=== PATIENT | male | born 1970 | race Caucasian/White ===

== ENCOUNTER 2018-01-29 09:27 | Emergency (ER) | payer OTHER ==
[2018-01-29] MEDS ORDERED: KETOROLAC 15 MG/ML VIAL IVP ONE ×2 (09:35→10:50)
[2018-01-29] MEDS ORDERED: ONDANSETRON 4 MG/2 ML VIAL IVP ONE (09:35)
[2018-01-29 10:04] LABS: PLATELET COUNT, AUTOMATED 282 K/uL (150-450)
--- NOTE | 2018-01-29 10:49 | RADIOLOGY IMAGING REPORT ---
FACILITY: [facility] - [place] PATIENT NAME: Albin Hutton : 1970 MR: [id number] V: [id number] EXAM DATE: ORDERING PHYSICIAN: DHARMESH CRUZ TECHNOLOGIST: Location: [facility] Patient: Albin Hutton : 1970 Visit/Account:[id number] Date of Sevice: 01/29/2018 EXAMINATION: CT abdomen without IV contrast CT pelvis without IV contrast HISTORY: Right flank pain. TECHNIQUE: Spiral scan was through the abdomen and pelvis without intravenous contrast. Sagittal a nd coronal reformatted images are also submitted. One of the following dose optimization techniques was utilized in the performance of this exam: Autom ated exposure control; adjustment of the mA and/or kV according to the patient's size; or use of an i terative reconstruction technique. Specific details can be referenced in the facility's radiology C T exam operational policy. COMPARISON: None available. FINDINGS: Lower chest: Calcified right hilar lymph nodes consistent with old granulomatous disease. Please note that without intravenous contrast, sensitivity to detection of parenchymal disease is kendrick ited. Liver / biliary: Hepatic steatosis. Otherwise negative. Pancreas: Negative. Spleen: Calcified granulomas. Otherwise negative. Adrenal glands: Negative. Kidneys: 4 to 5 mm stone in the distal right ureter just above the ureterovesical junction with mild to moderate right hydronephrosis and perinephric edema. Pelvic structures: Negative. Bowel: Normal appendix. Diverticulosis of the ascending colon with no evidence of acute diverticuliti s. Otherwise negative. Peritoneum / retroperitoneum / mesenteries: Negative. Vessels: Negative. Lymph nodes: Negative. Musculoskeletal / Body wall: Negative. IMPRESSION: 1. 4 to 5 mm stone in the distal right ureter just above the ureterovesical junction with mild to mod erate right hydronephrosis and perinephric edema. 2. Hepatic steatosis. 3. Diverticulosis of the ascending colon with no evidence of acute diverticulitis. 4. Calcified right hilar lymph nodes and calcified granulomas in the spleen consistent with old granu lomatous disease. Report Dictated By: Simon Xiao MD at 01/29/2018 10:34 AM Report E-Signed By: Simon Xiao MD at 01/29/2018 10:44 AM WSN:[id number]
[2018-01-29] MEDS ORDERED: NAPR375T44 PO (11:02)
[2018-01-29] MEDS ORDERED: TAMS0.4C25 PO (11:02)
[2018-01-29] MEDS ORDERED: ONDA4TAB97 PO (11:02)
--- NOTE | 2018-01-29 11:03 | ER Report ---
History and Physical Time Seen By MD: 09:30 Hx. of Stated Complaint: patient reports right sided flank pain, he believes he has a kidney stone HPI/ROS CHIEF COMPLAINT: Right groin and flank pain. HISTORY OF PRESENT ILLNESS: Patient is a 47-year-old male with known history of right-sided kidney stone that is proximal be 5 mm. Patient presents to emergency department today waking up this morning with severe left-sided flank pain radiating to the groin associated with nausea and vomiting. Patient states he has a prior history of hypertension, type II diabetes and hypercholesterolemia. The severity of the pain is currently 9 out of 10 in intensity. There is associated nausea. Patient denies any gross hematuria or dysuria. Currently denies having any fevers or chills. REVIEW OF SYSTEMS: Respiratory: No cough, no dyspnea. Cardiovascular: No chest pain, no palpitations. Gastrointestinal: Nausea Musculoskeletal: Right flank pain Allergies: Coded Allergies: Sulfa (Sulfonamide Antibiotics) (Verified Allergy, Unknown, 01/29/18) Home Meds Active Scripts Hydrocodone Bit/Acetaminophen (HYDROCODON-ACETAMINOPHEN 5-325) 1 Each Tablet, 1 EACH PO Q4-6H PRN for PAIN, #20 TAB 0 Refills TAKE ONE TABLET BY MOUTH EVERY 4-6 HOURS NEEDED FOR PAIN Prov:DHARMESH CRUZ MD 01/29/18 Naproxen (NAPROXEN) 375 Mg Tablet, 375 MG PO TID for PAIN, #30 TAB 0 Refills Prov:DHARMESH CRUZ MD 01/29/18 Tamsulosin Hcl (FLOMAX) 0.4 Mg Cap.er.24h, 0.4 MG PO QHS, #5 CAP 0 Refills Prov:DHARMESH CRUZ MD 01/29/18 Ondansetron Hcl (ZOFRAN) 4 Mg Tablet, 4 MG PO Q8H for Nausea, #15 TAB 0 Refills Prov:DHARMESH CRUZ MD 01/29/18 Past Medical/Surgical History Hypertension, hypercholesterol, type II diabetes Constitutional Vital Sign - Last 24 Hours 01/29/18 01/29/18 01/29/18 01/29/18 09:35 09:36 09:57 10:00 Temp 97.5 Pulse 68 75 Resp 20 B/P (MAP) 149/83 149/83 (105) 118/75 (89) Pulse Ox 94 88 O2 Delivery Room Air 01/29/18 01/29/18 01/29/18 01/29/18 10:30 10:35 11:05 11:10 Pulse 66 68 79 B/P (MAP) 130/71 (90) Pulse Ox 88 92 85 01/29/18 11:13 B/P (MAP) 129/82 (98) Physical Exam General Appearance: The patient is alert, has no immediate need for airway protection and no current signs of toxicity. Eyes: Pupils equal and round no injection. Respiratory: Chest is non tender, lungs are clear to auscultation. Cardiac: regular rate and rhythm Gastrointestinal: Abdomen is soft and non tender, no masses, bowel sounds normal. Musculoskeletal: Neck: Neck is supple and non tender. Extremities have full range of motion and are non tender. Skin: No rashes or lesions. Medical Decision Making Data Points Result Diagram: 01/29/1845 01/29/18 0945 Laboratory Hematology Test 01/29/18 09:20 01/29/18 09:45 Urine Color Yellow Urine Clarity Clear Urine pH 5.0 pH (4.8-9.5) Urine Specific [place] 1.016 Urine Protein Negative mg/dL (NEGATIVE) Urine Glucose (UA) 50 mg/dL (NEGATIVE) Urine Ketones Negative mg/dL (NEGATIVE) Urine Blood Moderate (NEGATIVE) Urine Nitrite Negative (NEGATIVE) Urine Bilirubin Negative (NEGATIVE) Urine Urobilinogen Negative mg/dL (0.2-1.9) Urine Leukocyte Esterase Negative (NEGATIVE) Urine RBC 1 /HPF (0-2/HPF) Urine WBC <1 /HPF (0-5/HPF) Urine Squamous Epithelial Cells Few /LPF (</=FEW) Urine Bacteria Negative /HPF (NONE-FEW) Urine Mucus None /HPF (NONE-FEW) Red Blood Count 5.14 M/uL (4.00-5.60) Mean Corpuscular Volume 81.6 fL (80.0-96.0) Mean Corpuscular Hemoglobin 27.9 pg (26.0-33.0) Mean Corpuscular Hemoglobin Concent 34.2 g/dL (32.0-36.0) Red Cell Distribution Width 14.7 % (11.5-14.5) Mean Platelet Volume 7.5 fL (7.2-11.1) Neutrophils (%) (Auto) 63.7 % (39.4-72.5) Lymphocytes (%) (Auto) 23.3 % (17.6-49.6) Monocytes (%) (Auto) 11.1 % (4.1-12.4) Eosinophils (%) (Auto) 1.2 % (0.4-6.7) Basophils (%) (Auto) 0.7 % (0.3-1.4) Nucleated RBC Relative Count (auto) 0.0 /100WBC Neutrophils # (Auto) 4.9 K/uL (2.0-7.4) Lymphocytes # (Auto) 1.8 K/uL (1.3-3.6) Monocytes # (Auto) 0.9 K/uL (0.3-1.0) Eosinophils # (Auto) 0.1 K/uL (0.0-0.5) Basophils # (Auto) 0.1 K/uL (0.0-0.1) Nucleated RBC Absolute Count (auto) 0.00 K/uL Peripheral Blood Smear No Y/N Sodium Level 137 mmol/L (137-145) Potassium Level 4.0 mmol/L (3.5-5.0) Chloride Level 103 mmol/L (98-107) Carbon Dioxide Level 22 mmol/L (22-30) Blood Urea Nitrogen 18 mg/dl (9-21) Creatinine 1.20 mg/dl (0.66-1.25) Glomerular Filtration Rate Calc > 60.0 Random Glucose 189 mg/dl (75-110) Calcium Level 9.4 mg/dl (8.4-10.2) Chemistry Test 01/29/18 09:20 01/29/18 09:45 Urine Color Yellow Urine Clarity Clear Urine pH 5.0 pH (4.8-9.5) Urine Specific [place] 1.016 Urine Protein Negative mg/dL (NEGATIVE) Urine Glucose (UA) 50 mg/dL (NEGATIVE) Urine Ketones Negative mg/dL (NEGATIVE) Urine Blood Moderate (NEGATIVE) Urine Nitrite Negative (NEGATIVE) Urine Bilirubin Negative (NEGATIVE) Urine Urobilinogen Negative mg/dL (0.2-1.9) Urine Leukocyte Esterase Negative (NEGATIVE) Urine RBC 1 /HPF (0-2/HPF) Urine WBC <1 /HPF (0-5/HPF) Urine Squamous Epithelial Cells Few /LPF (</=FEW) Urine Bacteria Negative /HPF (NONE-FEW) Urine Mucus None /HPF (NONE-FEW) White Blood Count 7.7 k/uL (4.5-11.0) Red Blood Count 5.14 M/uL (4.00-5.60) Hemoglobin 14.3 g/dL (14.0-18.0) Hematocrit 41.9 % (42.0-52.0) Mean Corpuscular Volume 81.6 fL (80.0-96.0) Mean Corpuscular Hemoglobin 27.9 pg (26.0-33.0) Mean Corpuscular Hemoglobin Concent 34.2 g/dL (32.0-36.0) Red Cell Distribution Width 14.7 % (11.5-14.5) Platelet Count 282 K/uL (150-450) Mean Platelet Volume 7.5 fL (7.2-11.1) Neutrophils (%) (Auto) 63.7 % (39.4-72.5) Lymphocytes (%) (Auto) 23.3 % (17.6-49.6) Monocytes (%) (Auto) 11.1 % (4.1-12.4) Eosinophils (%) (Auto) 1.2 % (0.4-6.7) Basophils (%) (Auto) 0.7 % (0.3-1.4) Nucleated RBC Relative Count (auto) 0.0 /100WBC Neutrophils # (Auto) 4.9 K/uL (2.0-7.4) Lymphocytes # (Auto) 1.8 K/uL (1.3-3.6) Monocytes # (Auto) 0.9 K/uL (0.3-1.0) Eosinophils # (Auto) 0.1 K/uL (0.0-0.5) Basophils # (Auto) 0.1 K/uL (0.0-0.1) Nucleated RBC Absolute Count (auto) 0.00 K/uL Peripheral Blood Smear No Y/N Glomerular Filtration Rate Calc > 60.0 Calcium Level 9.4 mg/dl (8.4-10.2) Urinalysis Test 01/29/18 09:20 Urine Color Yellow Urine Clarity Clear Urine pH 5.0 pH (4.8-9.5) Urine Specific [place] 1.016 Urine Protein Negative mg/dL (NEGATIVE) Urine Glucose (UA) 50 mg/dL (NEGATIVE) Urine Ketones Negative mg/dL (NEGATIVE) Urine Blood Moderate (NEGATIVE) Urine Nitrite Negative (NEGATIVE) Urine Bilirubin Negative (NEGATIVE) Urine Urobilinogen Negative mg/dL (0.2-1.9) Urine Leukocyte Esterase Negative (NEGATIVE) Urine RBC 1 /HPF (0-2/HPF) Urine WBC <1 /HPF (0-5/HPF) Urine Squamous Epithelial Cells Few /LPF (</=FEW) Urine Bacteria Negative /HPF (NONE-FEW) Urine Mucus None /HPF (NONE-FEW) EKG/Imaging Imaging FACILITY: [facility] [place] PATIENT NAME: Albin Hutton : 1970 MR: [id number] V: [id number] EXAM DATE: [id number] ORDERING PHYSICIAN: DHARMESH CRUZ TECHNOLOGIST: Location: [facility] [place] Patient: Albin Hutton : 1970 Visit/Account:[id number] Date of Sevice: 01/29/2018 EXAMINATION: CT abdomen without IV contrast CT pelvis without IV contrast HISTORY: Right flank pain. TECHNIQUE: Spiral scan was through the abdomen and pelvis without intravenous contrast. Sagittal and coronal reformatted images are also submitted. One of the following dose optimization techniques was utilized in the performance of this exam: Automated exposure control; adjustment of the mA and/or kV according to the patient's size; or use of an iterative reconstruction technique. Specific details can be referenced in the facility's radiology CT exam operational policy. COMPARISON: None available. FINDINGS: Lower chest: Calcified right hilar lymph nodes consistent with old granulomatous disease. Please note that without intravenous contrast, sensitivity to detection of parenchymal disease is limited. Liver / biliary: Hepatic steatosis. Otherwise negative. Pancreas: Negative. Spleen: Calcified granulomas. Otherwise negative. Adrenal glands: Negative. Kidneys: 4 to 5 mm stone in the distal right ureter just above the ureterovesical junction with mild to moderate right hydronephrosis and perinephric edema. Pelvic structures: Negative. Bowel: Normal appendix. Diverticulosis of the ascending colon with no evidence of acute diverticulitis. Otherwise negative. Peritoneum / retroperitoneum / mesenteries: Negative. Vessels: Negative. Lymph nodes: Negative. Musculoskeletal / Body wall: Negative. IMPRESSION: 1. 4 to 5 mm stone in the distal right ureter just above the ureterovesical junction with mild to moderate right hydronephrosis and perinephric edema. 2. Hepatic steatosis. 3. Diverticulosis of the ascending colon with no evidence of acute diverticulitis. 4. Calcified right hilar lymph nodes and calcified granulomas in the spleen consistent with old granulomatous disease. Report Dictated By: Simon Xiao MD at 01/29/2018 10:34 AM Report E-Signed By: Simon Xiao MD at 01/29/2018 10:44 AM WSN:[id number] Course/Re-evaluation ED Course A bedside ultrasound demonstrates right-sided hydronephrosis. Plan at this time will be workup for renal colic and kidney stone. We'll obtain urinalysis, CBC, BMP. We will give IV Toradol for pain and Zofran for nausea and perform noncontrast CT of the abdomen and pelvis. Decision to Disposition Date: Jan 29, 2018 Decision to Disposition Time: 11:15 Depart Departure Latest Vital Signs Vital Signs Date Time Temp Pulse Resp B/P (MAP) Pulse Ox O2 Delivery O2 Flow Rate FiO2 01/29/18 11:13 129/82 (98) 01/29/18 11:10 79 85 01/29/18 09:35 97.5 20 Room Air Impression: Primary Impression: Kidney stone on right side Condition: Improved Disposition: HOME OR SELF-CARE New Scripts Hydrocodone Bit/Acetaminophen (HYDROCODON-ACETAMINOPHEN 5-325) 1 Each Tablet 1 EACH PO Q4-6H PRN for PAIN, #20 TAB 0 Refills TAKE ONE TABLET BY MOUTH EVERY 4-6 HOURS NEEDED FOR PAIN Prov: DHARMESH CRUZ MD 01/29/18 Naproxen (NAPROXEN) 375 Mg Tablet 375 MG PO TID for PAIN, #30 TAB 0 Refills Prov: DHARMESH CRUZ MD 01/29/18 Tamsulosin Hcl (FLOMAX) 0.4 Mg Cap.er.24h 0.4 MG PO QHS, #5 CAP 0 Refills Prov: DHARMESH CRUZ MD 01/29/18 Ondansetron Hcl (ZOFRAN) 4 Mg Tablet 4 MG PO Q8H for Nausea, #15 TAB 0 Refills Prov: DHARMESH CRUZ MD 01/29/18 Patient Instructions: Kidney Stones (DC) Additional Instructions: Return to the emergency department in 72 hours if symptoms persist. If your pain is not controlled or you develop fever and any time you should return to the emergency department immediately. DHARMESH CRUZ MD Jan 29, 2018 11:03
[2018-01-29] MEDS ORDERED: LOR5/325 PO (11:09)
[2018-01-29 11:13] VITALS: BP 129/82
== END 2018-01-29 11:21 | disposition home or self-care (01) ==
LOC: ER 09:37
DX: N13.2 Hydronephrosis with renal and ureteral calculous obstruction (principal); N23 Unspecified renal colic
CPT/HCPCS: 74176; 81001; 85025; 96374; 96375; 96376; 99284; J1885; J2405; 82310; 82374; 82435; 82565; 82947; 84132; 84295; 84520

== ENCOUNTER → 2018-03-02 | Outpatient (CLI) | payer OTHER ==
[~2018-03-02] MED LIST: LOR5/325 PO; NAPR375T44 PO; ONDA4TAB97 PO; TAMS0.4C25 PO
--- NOTE | 2018-03-02 13:07 | RADIOLOGY IMAGING REPORT ---
FACILITY: [facility] - [place] PATIENT NAME: Albin Hutton : 1970 MR: [id number] V: [id number] EXAM DATE: ORDERING PHYSICIAN: ISAIAH LUDWIG TECHNOLOGIST: Location: [facility] Patient: Albin Hutton : 1970 Visit/Account:[id number] Date of Sevice: 03/02/2018 CT ABDOMEN PELVIS W/O CON HISTORY: Kidney stones since October, bladder and January TECHNIQUE: Axial images acquired through the abdomen/pelvis. Coronal and sagittal reformatting also performed. No IV contrast administered.Dose Lowering Technique One of the following dose optimization techniques was utilized in the performance of this exam: Autom ated exposure control; adjustment of the mA and/or kV according to the patient's size; or use of an i terative reconstruction technique. Specific details can be referenced in the facility's radiology C T exam operational policy. COMPARISON: January 29, 2018 FINDINGS: Visualized lung bases: Negative. Hepatobiliary: There is diffuse hepatic steatosis Spleen: Calcified granulomas Adrenals: Negative. Pancreas: Negative. Kidneys ureters and bladder: Previous seen noted 4 to 5 mm calculus in the distal right ureter remain s unchanged in position just proximal to the right UVJ. There is however no evidence of hydronephros is or hydroureter at this time. No demonstration of nephrolithiasis. Genitalia: Negative. GI: There is mild colonic diverticulosis although no CT evidence of acute diverticulitis. The appen mitchel is visualized and does not appear inflamed Vessels/spaces/nodes: Negative. Bones/soft tissues: Small umbilical hernia containing fat. Small left inguinal hernia containing fa t Additional findings: None pertinent. IMPRESSION: The previously noted 4 to 5 mm calculus in the distal right ureter just proximal to the right UVJ has remained unchanged in position. There is however no evidence of hydronephrosis or hydroureter at th is time Additional chronic findings as described above Report Dictated By: Brooklynn Rich MD at 03/02/2018 12:56 PM Report E-Signed By: Brooklynn Rich MD at 03/02/2018 1:02 PM WSN:[email or web address]
== END ==
LOC: CT 02-03 01:30
PROVIDERS: ATTEND Urology
DX: N20.0 Calculus of kidney (principal); K42.9 Umbilical hernia without obstruction or gangrene; K57.30 Diverticulosis of large intestine without perforation or abscess without bleeding
CPT/HCPCS: 74176

== ENCOUNTER → 2018-03-09 | Outpatient (CLI) | payer OTHER ==
[~2018-03-09] MED LIST changes: +ASPI-1471 PO; +ASPI81TA94 PO; +ATOR40TA24 PO; +CETI-176 PO; +CHOL500045 PO; +CLON-1 PO; +FENO48TA PO; +GLY5 PO; +LISI-374 PO; +METF-452 PO; +MONT10TA PO; +RANI-366 PO; +TRINTELLIX PO
--- NOTE | 2018-03-09 09:43 | EKG ---
FACILITY: [facility] [place] PATIENT NAME: DAVINA KEANE : [id number] MR: [id number] V: [id number] EXAM DATE: ORDERING PHYSICIAN: ISAIAH LUDWIG TECHNOLOGIST: DRAGAN Test Reason : PRE OP Blood Pressure : / mmHG Vent. Rate : 061 BPM Atrial Rate : 061 BPM P-R Int : 170 ms QRS Dur : 078 ms QT Int : 382 ms P-R-T Axes : 043 042 020 degrees QTc Int : 384 ms Normal sinus rhythm with sinus arrhythmia Nonspecific ST and T wave abnormality Abnormal ECG No previous ECGs available Confirmed by SAM SCHWARTZ ([id number]) on 03/09/2018 6:14:44 PM Referred By: VANI Confirmed By:SAM SCHWARTZ
--- NOTE | 2018-03-09 11:07 | RADIOLOGY IMAGING REPORT ---
FACILITY: [facility] PATIENT NAME: Albin Hutton : 1970 MR: [id number] V: [id number] EXAM DATE: ORDERING PHYSICIAN: JAZMYN JIMENEZ TECHNOLOGIST: Location: [facility] Patient: Albin Hutton : 1970 Visit/Account:[id number] Date of Sevice: 03/09/2018 CHEST PA LAT History: Preoperative for kidney stone surgery FINDINGS: Comparison studies: None. Tubes and Lines: None. Lungs and pleura: Well aerated. No evidence of focal consolidation or pleural effusions. Mediastinum: normal. Cardiac silhouette: normal . Osseous structures: Unremarkable for age . IMPRESSION: Normal chest Report Dictated By: Tu Rodrigues MD at 03/09/2018 11:00 AM Report E-Signed By: Tu Rodrigues MD at 03/09/2018 11:01 AM WSN:[id number]
== END ==
LOC: RAD 08:50
PROVIDERS: ATTEND Family Medicine
DX: Z01.818 Encounter for other preprocedural examination (principal); R94.31 Abnormal electrocardiogram [ECG] [EKG]
CPT/HCPCS: 36415; 71046; 82465; 83718; 84443; 84478; 93005

== ENCOUNTER 2018-03-14 02:25 | Observation (INO) | payer OTHER ==
--- NOTE | 2018-03-11 15:12 | HISTORY AND PHYSICAL ---
DATE OF ADMISSION: March 14, 2018 CHIEF COMPLAINT Right kidney stone. HISTORY OF PRESENT ILLNESS Patient is a 47-year-old white male who recently presented with right flank pain and was diagnosed with a 5 mm distal stone on the 29 of January. Patient was originally seen in the Urology Clinic on the 16 of February for a followup. At that time, his urinalysis was normal, and he reported he was not having any significant discomfort. He had not passed any stone or stone fragments at that visit. He was given a urine strainer, and he returned to the clinic on the for a followup. A followup CT showed no significant movement of his distal kidney stone. In fact, he has had no progression over one month's time. He is now being brought to the operating room for planned right extracorporeal shock wave lithotripsy and/or ureteroscopy plus/minus a stent placement for this right distal stone. PAST MEDICAL HISTORY 1. Hypercholesterolemia. 2. Hypertension. 3. Obstructive sleep apnea. 4. Gastroesophageal reflux disease. 5. Non-insulin dependent diabetes. 6. Depression and anxiety. 7. Hypogonadism. PAST SURGICAL HISTORY 1. Tonsillectomy. 2. Corneal laceration. 3. Colonoscopy. 4. Hernia repair. 5. Lateral internal sphincterotomy. 6. Excision of basal cell carcinoma of the left ear. ALLERGIES SULFA. CURRENT MEDICATIONS 1. Lisinopril. 2. Metformin. 3. Glyburide. 4. Omeprazole. 5. Zantac. 6. Zyrtec. 7. Aspirin. 8. Singulair. 9. Lipitor. 10. Klonopin. 11. Trintellix. 12. Fenofibrate. 13. Vitamin D. 14. AndroGel. FAMILY HISTORY Noncontributory. SOCIAL HISTORY Patient lives in [place], [place], and is single. He denies tobacco or ethanol use. REVIEW OF SYSTEMS Patient denies chest pain, shortness of breath, nausea, vomiting, fever, chills, productive cough, chronic headaches, liver disease, or bleeding disorder. PHYSICAL EXAMINATION GENERAL: Patient is a well-developed, well-nourished, white male in no acute distress. HEENT: Normocephalic, atraumatic. CHEST: Clear to auscultation bilaterally. CARDIOVASCULAR: Regular rate and rhythm. ABDOMINAL: Soft, nontender. No masses are palpated. GENITOURINARY: Deferred to the OR. EXTREMITIES: Without clubbing, cyanosis, or edema. NEUROLOGIC: Nonfocal. IMPRESSION A 47-year-old white male with right distal ureteral calculus. PLAN Will perform anesthetic cystoscopy, possible stent placement, ureteroscopy, and/or extracorporeal shock wave lithotripsy as indicated. MTDD
[2018-03-11 18:38] LABS: PLATELET COUNT, AUTOMATED 320 K/uL (150-450)
[~2018-03-14] VITALS: Ht 186.7 cm; Wt 135.2 kg
[2018-03-14] MEDS ORDERED: MIDAZOLAM 2 MG/2 ML VIAL IVP PRN (06:30)
[2018-03-14] MEDS ORDERED: LIDOCAINE/SOD BICARB 8.4% SYR ID ONE (06:30)
[2018-03-14] MEDS ORDERED: ceFAZolin(*) 2GM/D5W 50ML 50 ML IVPB ONE (06:30)
[2018-03-14] MEDS ORDERED: NORMOSOL R SOLN(*) 1000 ML BAG 1,000 ML IV PRN (06:30)
[2018-03-14] MEDS ORDERED: FAMOTIDINE 20 MG TAB PO ONE (06:40)
[2018-03-14 06:41] VITALS: BP 138/83
[2018-03-14] MEDS ORDERED: DEXAMETHASONE SOD PHOS 10MG/ML ONE ×2 (06:52→06:53)
[2018-03-14] MEDS ORDERED: LIDOCAINE MPF 1% 5 ML VIAL ONE ×2 (06:52→06:53)
[2018-03-14] MEDS ORDERED: PROPOFOL EMUL(*) 10MG/ML 20 ML 20 ML ONE ×2 (06:52→06:53)
[2018-03-14] MEDS ORDERED: ONDANSETRON 4 MG/2 ML VIAL ONE ×2 (06:52→06:53)
[2018-03-14] MEDS ORDERED: KETAMINE HCL-NS 50 MG/5 ML SYR ONE (06:53)
[2018-03-14] MEDS ORDERED: fentaNYL CITR 100 MCG/2 ML AMP ONE (06:53)
[2018-03-14] MEDS ORDERED: IOPAMIDOL-200 50 ML VIAL IS ONE (07:01)
[2018-03-14] MEDS ORDERED: BELLADONNA ALK/OPIUM 60MG SUPP PR ONE (07:01)
[2018-03-14] MEDS ORDERED: LIDOCAINE MPF 4% 200MG/5ML AMP ONE (07:04)
[2018-03-14] MEDS ORDERED: LIDOCAINE 5% OINT 35.44 GM OINT TP ONE (07:25)
[2018-03-14] MEDS ORDERED: ePHEDrine 25 MG/5 ML DISP.SYR IVP ONE (07:51)
[2018-03-14] MEDS ORDERED: KETOROLAC 30 MG/ML VIAL ONE (08:48)
[2018-03-14] MEDS ORDERED: NS(*) 0.9% 1000 ML BAG 1,000 ML IV PRN ×2 (09:05→09:10)
[2018-03-14] MEDS ORDERED: PHENAZOPYRIDINE 200 MG TAB PO PRN (09:05)
[2018-03-14] MEDS ORDERED: MORPHINE 1 MG/ML 30 ML PCA IV PRN (09:10)
[2018-03-14] MEDS ORDERED: MAG HYD/AL HYD/SIMETH 30ML UDC PO PRN (09:10)
[2018-03-14] MEDS ORDERED: NALOXONE HCL 0.4 MG/ML VIAL IVP PRN (09:10)
[2018-03-14] MEDS ORDERED: ZOLPIDEM TARTRATE 5 MG TAB PO PRN (09:10)
[2018-03-14] MEDS ORDERED: OXYBUTYNIN CHL XL 5 MG TABCR PO PRN (09:15)
[2018-03-14] MEDS ORDERED: ONDANSETRON 4 MG/2 ML VIAL IVP PRN (09:15)
[2018-03-14] MEDS ORDERED: PCA LOCKBOX KEYS XX PRN (09:15)
[2018-03-14 09:40] VITALS: BP 141/89
--- NOTE | 2018-03-14 10:00 | RADIOLOGY IMAGING REPORT ---
FACILITY: [facility] [place] PATIENT NAME: Albin Hutton : 1970 MR: [id number] V: [id number] EXAM DATE: ORDERING PHYSICIAN: ISAIAH LUDWIG TECHNOLOGIST: Location: [facility] Patient: Albin Hutton : 1970 Visit/Account:[id number] Date of Sevice: 03/14/2018 Exam: RETROGRADE PYELOGRAM Indication: INTRA-OP STENT PLACEMENT, Comparison: CT 03/07/2018 Findings: Fluoroscopy is provided for right-sided ureteroscopy and stent placement. Fluoroscopy time one minute nine seconds DOSE: Air kerma was 115.63 mGy. IMPRESSION: Procedural fluoroscopy Report Dictated By: Jer Hackett at 03/14/2018 9:53 AM Report E-Signed By: Jer Hackett at 03/14/2018 9:54 AM WSN:[id number]
--- NOTE | 2018-03-14 10:24 | RADIOLOGY IMAGING REPORT ---
FACILITY: [facility] - [place] PATIENT NAME: Albin Hutton : 1970 MR: [id number] V: [id number] EXAM DATE: ORDERING PHYSICIAN: ISAIAH LUDWIG TECHNOLOGIST: [place] [facility] [place]: Albin Hutton : 1970 Visit/Account:[id number] Date of Sevice: 03/07/2018 ABDOMEN PELVIS ESWL CYSTO W/O HISTORY: KIDNEY STONES TECHNIQUE: Axial images acquired through the abdomen/pelvis. Coronal and sagittal reformatting also performed. No IV contrast administered.Dose Lowering Technique One of the following dose optimization techniques was utilized in the performance of this exam: Autom ated exposure control; adjustment of the mA and/or kV according to the patient's size; or use of an i terative reconstruction technique. Specific details can be referenced in the facility's radiology C T exam operational policy. COMPARISON: March 02, 2018 FINDINGS: Visualized lung bases: Negative. Hepatobiliary: Diffuse hepatic steatosis Spleen: Splenic granulomas Adrenals: Negative. Pancreas: Negative. Kidneys ureters and bladder: Previous noted 4 to 5 mm calculus in the distal right ureter remains unc hanged in position just proximal to the right UVJ. There is no evidence of hydronephrosis or hydrour eter. No evidence of nephrolithiasis. The bladder is mostly decompressed Genitalia: There coarse calcifications within the prostate gland GI: No evidence of bowel obstruction or bowel wall thickening Vessels/spaces/nodes: There mildly prominent mesenteric lymph nodes although appear stable compared the prior study. There are mild infiltrative changes seen in the mesenteric fat. This could be nons pecific finding possibly related to mesenteritis. Bones/soft tissues: Small umbilical hernia containing fat. Small left inguinal hernia containing fa t Additional findings: None pertinent. IMPRESSION: Previously noted 4 to 5 mm calculus in the distal right ureter remains unchanged in position just pro ximal to the right UVJ with no evidence of hydronephrosis or hydroureter Mildly prominent mesenteric lymph nodes although appears stable when compared the prior study. There are mild infiltrative changes in the mesenteric fat. This could be nonspecific in nature or possibl y related to mesenteritis. Clinical correlation needed Diffuse hepatic steatosis Report Dictated By: Brooklynn Rich MD at 03/14/2018 10:12 AM Report E-Signed By: Brooklynn Rich MD at 03/14/2018 10:20 AM WSN:[email or web address]
--- NOTE | 2018-03-14 11:36 | OPERATIVE REPORT 1 ---
EVENT DATE: March 14, 2018 SURGEON: Juan Clement MD ANESTHESIOLOGIST: Ruy Shepard MD ANESTHESIA: General. PREOPERATIVE DIAGNOSIS Right distal ureteral calculus. POSTOPERATIVE DIAGNOSIS Impacted right distal ureteral calculus. PROCEDURES PERFORMED 1. Cystoscopy. 2. Right retrograde pyelograms. 3. Right Double J internal ureteral stent placement. ESTIMATED BLOOD LOSS 5 cc. IV FLUIDS Crystalloids. DRAINS 6-Armenian x 26 cm Contour stent on right. PATHOLOGY None. COMPLICATIONS None. CONDITION The patient was taken to recovery room awake and in stable condition. STATEMENT OF MEDICAL NECESSITY The patient is a 47-year old white male who presented in mid January with right flank pain and was found to have a 5 mm right distal stone with moderate hydronephrosis. He was seen in the Urology Clinic in followup and did not pass the stone. A followup x-ray revealed no change in the stone position. However, the hydronephrosis had resolved. The patient was scheduled for right ureteroscopy at the end of February at that time if his stone had not passed. Followup x-ray preoperatively reveals no change in his stone position and, therefore, he is now being brought to the operating room for planned anesthetic cystoscopy, right retrograde ureteroscopy with stone manipulation and possible stent placement. DESCRIPTION OF OPERATION PERFORMED The patient was brought to the operating room. After general anesthetic was obtained, he was placed in the dorsal lithotomy position and prepped and draped in the usual sterile manner. Anesthetic cystoscopy relayed normal appearing pendulous, bulbar, membranous and prostatic urethra. Upon entering his bladder, he was noted to have smooth bladder mucosa and slit-like ureteral orifices, both effluxing clear urine. He had no bladder tumors or other lesions. At this point, the right ureteral orifice was cannulated with a 6- Armenian open end access catheter. A 0.035 sensor wire was advanced in the lumen of the access catheter past the stone up to the upper pole of calyx, which was confirmed by fluoroscopy. The access catheter was then advanced up to the level of the stone and attempted to be advanced next to stone over the wire up more proximally. There was a moderate amount of resistance encountered but I was able to successfully negotiate the 6-Armenian access catheter past the stone. Following this, the access catheter was removed, leaving the wire in place and this wire was then used to attempt to place the 8/10 dilating sheath system. The 8-Armenian sheath was passed over the wire and under fluoroscopic imaging advanced up the ureter to the level of the stone. Significant resistance was encountered and advancement of the 8-Armenian sheath could only be done to mid ureter. The wire system would continue to buckle within the bladder. Consideration of using a super stiff wire was given at this point and also possibly injecting some dilute contrast and surgical jelly mixture to aid in advancement past the stone. However, with attempted removal of the curled wire and 8-Armenian access catheter in the bladder, the wire in the ureter migrated down distally into the bladder, effectively losing access. The patient was re- cystoscoped. A minor amount of blood was emanating from the right ureteral orifice. At this point, the 6-Armenian access catheter was advanced in working channel of the scope and just inside the ureteral orifice. A retrograde pyelogram with dilute contrast material and lubricating jelly was injected in retrograde manner. Faint filling of the entire ureter and collecting system were identified. There was no evidence of ureteral injury or extravasation noted. At this point, a 0.035 wire was advanced into the lumen of the access catheter and advanced up to the upper pole of calyx. It was decided at this point that we would perform ureteral stenting, leave it in place for approximately 10-14 days for some passive ureteral dilation and then return for definitive stone treatment. Therefore, the access catheter was removed and the wire was used to place a 6-Armenian x 26 cm Contour stent. The stent advanced easily over the wire past the stone and he was noted to have curling in the renal pelvis by fluoroscopy and good curling in the bladder by direct vision. The patient's bladder was drained through the cystoscopic sheath. A B and O suppository was given at the conclusion of the case. He was awakened in the operating room and taken to the recovery area awake and in stable condition. PLAN We will keep the patient for 24 hour observation secondary to his social situation and lack of home care. We will discharge him home in the morning on Flomax, Colace, [place], Pyridium and Ditropan XL. We will have him return to the operating room in 10-14 days for followup ureteroscopy with definitive stone treatment after he has had some passive ureteral dilation from the stent. PAULD
[2018-03-14 14:27] VITALS: BP 129/73
[2018-03-14 14:48] VITALS: BP 141/87
[2018-03-14] MEDS: KETOROLAC 15 MG/ML VIAL IVP SCH ×2 (15:12→21:14)
[2018-03-14] MEDS: glyBURIDE 5 MG TAB PO SCH (17:52)
[2018-03-14] MEDS: metFORMIN HCL 500 MG TAB PO SCH (17:53)
[2018-03-14 18:49] VITALS: BP 119/78
[2018-03-14] MEDS ORDERED: RANITIDINE HCL 150 MG TAB PO SCH (21:00)
[2018-03-14] MEDS: DOCUSATE SODIUM 100 MG CAP PO SCH (21:00)
[2018-03-15 01:25] VITALS: BP 123/75
[2018-03-15] MEDS: KETOROLAC 15 MG/ML VIAL IVP SCH ×2 (03:00→09:00)
[2018-03-15 07:38] VITALS: BP 126/84
[2018-03-15] MEDS ORDERED: LISINOPRIL 20 MG TAB PO SCH (09:00)
[2018-03-15] MEDS ORDERED: FENOFIBRATE 48 MG TAB PO SCH (09:00)
[2018-03-15] MEDS ORDERED: clonazePAM 1 MG TAB PO SCH (09:00)
[2018-03-15] MEDS ORDERED: RANITIDINE HCL 150 MG TAB PO SCH (09:00)
[2018-03-15] MEDS ORDERED: TAMSULOSIN HCL 0.4 MG CAP PO SCH (09:00)
[2018-03-15] MEDS: metFORMIN HCL 500 MG TAB PO SCH (09:00)
[2018-03-15] MEDS: glyBURIDE 5 MG TAB PO SCH (09:00)
[2018-03-15] MEDS: DOCUSATE SODIUM 100 MG CAP PO SCH (09:00)
[2018-03-15 11:50] VITALS: Ht 186.7 cm; Wt 135.2 kg
== END 2018-03-15 08:57 | disposition home or self-care (01) ==
LOC: OR 02:25 → MED 09:40
PROVIDERS: ADMIT Urology; ATTEND Urology
DX: N20.1 Calculus of ureter (principal); E78.00 Pure hypercholesterolemia, unspecified; I10 Essential (primary) hypertension; G47.33 Obstructive sleep apnea (adult) (pediatric); K21.9 Gastro-esophageal reflux disease without esophagitis; E11.9 Type 2 diabetes mellitus without complications; F41.8 Other specified anxiety disorders; E29.1 Testicular hypofunction; Z88.2 Allergy status to sulfonamides; Z79.84 Long term (current) use of oral hypoglycemic drugs
CPT/HCPCS: 36415; 36416; 52332; 74176; 74420; 81001; 82948; 84153; 85025; 87088; 94640; 94660; C1758; C1769; C2617; G0378; J1100; J1885; J2001; J2405; J2704; J3010; J3490; Q9966; 82040; 82247; 82310; 82374; 82435; 82565; 82947; 84075; 84132; 84155; 84295; 84450; 84460; 84520; J0690

== ENCOUNTER 2018-03-28 03:34 | Observation (INO) | payer OTHER ==
[2018-03-25 09:50] LABS: PLATELET COUNT, AUTOMATED 347 K/uL (150-450)
--- NOTE | 2018-03-25 13:56 | HISTORY AND PHYSICAL ---
DATE OF ADMISSION: March 28, 2018 CHIEF COMPLAINT Right kidney stone with indwelling ureteral stent. HISTORY OF PRESENT ILLNESS The patient is a 47-year-old white male who was originally diagnosed with a right distal ureteral stone after presenting to the emergency room on the 29 of January with flank pain. He was followed up in the urology clinic with a CT scan on the 02 March which showed no significant movement of his stones. He was taken to the operating room on March 14, 2018 for attempted right ureteroscopy. However, the stone was densely impacted and he had a ureteral stent placed with a plan to return in approximately 2 weeks time for ureteroscopy after passive ureteral dilation. He is now being admitted for the above procedure. PAST MEDICAL HISTORY * Hypercholesterolemia. * Hypertension. * Obstructive sleep apnea. * Gastroesophageal reflux disease. * Noninsulin dependent diabetes. * Depression with anxiety. * Hypogonadism. PAST SURGICAL HISTORY * Tonsillectomy. * Corneal laceration. * Colonoscopy. * Hernia repair. * Lateral internal sphincterotomy. * Excision of basal cell carcinoma of the left ear. * Cystoscopy with right ureteral stent placement March 14, 2018. ALLERGIES SULFA CURRENT MEDICATIONS * Lisinopril. * Metformin. * Glyburide. * Omeprazole. * Zantac. * Zyrtec. * Aspirin. * Singular. * Lipitor. * Klonopin. * Trintellix. * Fenofibrate. * Vitamin D. * AndroGel. * Flomax. * Colace. * [place]. * Pyridium. * Ditropan XL. SOCIAL HISTORY The patient lives in [place], [place]. He is single. Denies tobacco or ethanol use. FAMILY HISTORY Noncontributory. REVIEW OF SYSTEMS The patient denies chest pain, shortness of breath, nausea, vomiting, fever, chills, productive cough, liver disease or bleeding disorder. PHYSICAL EXAMINATION GENERAL: The patient is a well-developed, well-nourished white male in no acute distress. HEENT: Normocephalic, atraumatic. CHEST: Clear to auscultation bilaterally. CARDIOVASCULAR: Regular rate and rhythm. ABDOMEN: Soft, nontender, no masses are palpated. : Deferred to the operating room. EXTREMITIES: Without clubbing, cyanosis, or edema. NEURO: Nonfocal. IMPRESSION This is a 47-year-old white male with a history of a right 5 mm distal impacted stone, status post a ureteral stent placement 2 weeks ago. PLAN We will perform anesthetic cystoscopy, stent removal, ureteroscopy and stone treatment. [facility]
[~2018-03-28] VITALS: Ht 185.4 cm; Wt 135.4 kg
[2018-03-28] VITALS (16 sets, daily range): BP systolic 105–143; BP diastolic 69–92
[~2018-03-28 03:34] MED LIST changes: +DOCU-416 PO; +IBUP-56 PO; +OXYB10TA16 PO; +OXYB5TAB86 PO; +PHEN200T32 PO; +SEMA1PEN IM; +TAMS0.4C70 PO
[2018-03-28] MEDS ORDERED: FAMOTIDINE 20 MG TAB PO ONE (06:30)
[2018-03-28] MEDS ORDERED: ceFAZolin(*) 2GM/D5W 50ML 50 ML IVPB ONE (06:30)
[2018-03-28] MEDS ORDERED: LIDOCAINE/SOD BICARB 8.4% SYR ID ONE (06:30)
[2018-03-28] MEDS ORDERED: MIDAZOLAM 2 MG/2 ML VIAL IVP PRN (06:30)
[2018-03-28] MEDS ORDERED: NORMOSOL R SOLN(*) 1000 ML BAG 1,000 ML IV PRN (06:30)
--- NOTE | 2018-03-28 06:49 | RADIOLOGY IMAGING REPORT ---
FACILITY: [facility] [place] PATIENT NAME: Albin Hutton : 1970 MR: [id number] V: [id number] EXAM DATE: ORDERING PHYSICIAN: ISAIAH LUDWIG TECHNOLOGIST: Location: [facility] [place] Patient: Albin Hutton : 1970 Visit/Account:[id number] Date of Sevice: 03/24/2018 KUB SINGLE VIEW ABDOMEN HISTORY: Preop. COMPARISON: 03/14/2018 and studies dating to 01/29/2018. FINDINGS: 2 supine images were obtained. There is a right double-J ureteral stent, unchanged in position compared to recent retrograde pyelogr am. No calculus is appreciated along the course of the stent, at the expected location of the left ur eter, or at either renal fossa. Distribution of bowel gas is normal with bowel in all four quadrants as well as centrally. No dilated bowel loops. No free air. IMPRESSION: 1. Unremarkable bowel gas pattern without obstruction. 2. Right ureteral stent. Report Dictated By: Trisha Guy at 03/28/2018 6:41 AM Report E-Signed By: Trisha Guy at 03/28/2018 6:45 AM WSN:[id number]
[2018-03-28] MEDS ORDERED: DEXAMETHASONE SOD PHOS 10MG/ML ONE (07:16)
[2018-03-28] MEDS ORDERED: LIDOCAINE MPF 1% 5 ML VIAL ONE (07:16)
[2018-03-28] MEDS ORDERED: fentaNYL CITR 100 MCG/2 ML AMP ONE (07:16)
[2018-03-28] MEDS ORDERED: PROPOFOL EMUL(*) 10MG/ML 20 ML 20 ML ONE (07:16)
[2018-03-28] MEDS ORDERED: ONDANSETRON 4 MG/2 ML VIAL ONE (07:16)
[2018-03-28] MEDS ORDERED: KETAMINE HCL-NS 50 MG/5 ML SYR ONE (07:17)
[2018-03-28] MEDS ORDERED: MIDAZOLAM 2 MG/2 ML VIAL ONE (07:25)
[2018-03-28] MEDS ORDERED: LIDOCAINE MPF 4% 200MG/5ML AMP INH ONE (07:30)
[2018-03-28] MEDS ORDERED: LIDOCAINE 5% OINT 35.44 GM OINT TP PRN (07:30)
[2018-03-28] MEDS ORDERED: IOPAMIDOL-200 50 ML VIAL IS ONE (08:06)
[2018-03-28] MEDS ORDERED: BELLADONNA ALK/OPIUM 60MG SUPP PR ONE (08:06)
--- NOTE | 2018-03-28 09:52 | RADIOLOGY IMAGING REPORT ---
[facility] PATIENT NAME: Albin Hutton : 1970 MR: [id number] V: [id number] EXAM DATE: ORDERING PHYSICIAN: ISAIAH LUDWIG TECHNOLOGIST: [place] [facility] [place] Albin Hutton : 1970 Visit/Account:[id number] Date of Sevice: 03/28/2018 Abdomen fluoroscopic images FINDINGS: Fluoroscopy time 24 seconds. 17 images available demonstrate removal of a right ureteral stent and subsequent placement of a new r ight ureteral stent. IMPRESSION: Abdomen fluoroscopic images. Report Dictated By: Albino Carey MD at 03/28/2018 9:41 AM Report E-Signed By: Albino Carey MD at 03/28/2018 9:46 AM WSN:[email or web address]
[2018-03-28] MEDS ORDERED: NS(*) 0.9% 1000 ML BAG 1,000 ML IV PRN (09:55)
[2018-03-28] MEDS ORDERED: ZOLPIDEM TARTRATE 5 MG TAB PO PRN (09:55)
[2018-03-28] MEDS ORDERED: PHENAZOPYRIDINE 200 MG TAB PO PRN (09:55)
[2018-03-28] MEDS ORDERED: OXYBUTYNIN CHL XL 5 MG TABCR PO PRN (10:15)
[2018-03-28] MEDS ORDERED: ONDANSETRON 4 MG/2 ML VIAL IVP PRN (10:15)
[2018-03-28] MEDS ORDERED: HYDR-653 PO (11:01)
[2018-03-28] MEDS ORDERED: TAMS0.4C25 PO (11:05)
[2018-03-28] MEDS ORDERED: DOCU-416 PO (11:06)
[2018-03-28] MEDS ORDERED: PHEN200T32 PO (11:06)
[2018-03-28] MEDS ORDERED: IBUP-1671 PO (11:07)
[2018-03-28] MEDS ORDERED: OXYB10TA21 PO (11:07)
[2018-03-28] MEDS ORDERED: IBUP600T22 PO (11:08)
--- NOTE | 2018-03-28 11:12 | OPERATIVE REPORT 1 ---
EVENT DATE: March 28, 2018 SURGEON: Juan Clement MD ANESTHESIOLOGIST: Ruy Shepard MD ANESTHESIA: General anesthetic. PREOPERATIVE DIAGNOSIS Right distal ureteral calculus with indwelling ureteral stents. POSTOPERATIVE DIAGNOSIS Right distal ureteral calculus with indwelling ureteral stents. PROCEDURE PERFORMED 1. Cystoscopy. 2. Right double-J stent removal. 3. Right semi-rigid ureteroscopy with laser fragmentation of stone and grasping of stone fragments. 4. Right internal double-J ureteral stent replacement. ESTIMATED BLOOD LOSS Minimal. IV FLUIDS Crystalloids. DRAINS 4.8 Martiniquais x 26 cm Contour stent on right. PATHOLOGY None. COMPLICATIONS None. CONDITION The patient was taken to recovery room awake and in stable condition. STATEMENT OF MEDICAL NECESSITY The patient is a 47-year old white male who was noted to have a distal right ureteral stone after presenting with renal colic. He was followed conservatively and had non-movement of his stone. He was originally taken to the operating room two weeks ago. At that time, he was found to have significantly narrow distal ureter precluding safe passage of a ureteroscope. Therefore, at that time, a 6 x 26 cm Contour stent was placed to relieve ureteral obstruction and provide passive ureteral dilation. He is now being brought back to the operating room for planned urologic intervention with semi- rigid ureteroscopy. Preoperative KUB reveals good placement of stent. The exact location of the stone is unclear. DESCRIPTION OF OPERATION PERFORMED The patient was brought to the operating room and after general anesthetic was obtained, he was placed in the dorsal lithotomy position and prepped and draped in the usual sterile manner. Anesthetic cystoscopy was performed with the 21- Martiniquais Tabares sheath with a 30-degree lens. He had a normal-appearing pendulous, bulbar and membranous urethra. Upon entering his bladder, the stent was seen emanating from the right ureteral orifice. It was grasped at the distal end and brought up to the meatus. The lumen was then cannulated with a double floppy sensor wire, which was advanced up to the upper pole under fluoroscopic imaging. The stent was removed. This wire was used to place an 8/10 dilating system. A second wire was placed alongside the first wire inside the 10 sheath. The 10 sheath was removed. One wire was secured to the drapes. The safety wire and the next wire was used as a working wire and was backloaded into the 4.5 Martiniquais Tabares semi-rigid scope. Ureteroscopy was performed over the wire under direct vision with the aid of the camera. His distal ureter was still somewhat snug around the 4.5 scope. I was able to advance the scope proximally to just below the level of the vessels where the stone was encountered. It was ovoid in shape with a light yellow surface, which was slightly irregular. At this point, the 365 Holmium laser fiber was introduced into the working channel of the scope and set on fragmentation setting. The stone was treated under direct visualization. The inner portion of the stone was more crystal in nature and radiology services manager in appearance. The stone was vaporized approximately to one-half its volume. However, it did migrate more proximally. Therefore, the triceps grasping forceps were then introduced. The stone was engaged and brought down again to the distal ureter, where further fragmentation was resumed. At the conclusion of fragmentation, there were two small remaining fragments 2 mm in size. The grasping forceps were then introduced and both of these fragments were sequentially grasped and dropped into the bladder. Following this, the patient's bladder was drained. The working wire was then backloaded into the cystoscope and this was used to place a 4.8 Martiniquais x 26 cm Contour stent with the string attached to its distal end. The string was then taken down and placed on the penile shaft. A B and O suppository was given at the conclusion of the case. The patient was awakened in the operating room and taken to the recovery area in stable condition. PLAN Allow patient to be admitted for 23-hour observation secondary to his social situation with no one to drive or care for him for the next 24 hours and we will plan to discharge him home in the morning and plan to see him in the clinic in three days to remove his stent from the string. YUNIOR
[2018-03-28] MEDS: KETOROLAC 30 MG/ML VIAL IVP SCH ×2 (12:51→18:38)
[2018-03-28] MEDS: metFORMIN HCL 500 MG TAB PO SCH (17:10)
[2018-03-28] MEDS ORDERED: RANITIDINE HCL 150 MG TAB PO SCH (17:10)
[2018-03-28] MEDS: glyBURIDE 5 MG TAB PO SCH (17:27)
[2018-03-28] MEDS: INSULIN HUM LISPRO 100 UN/ML 3 ML VIAL SUBQ PRN ×2 (17:42→21:09)
--- NOTE | 2018-03-28 18:20 | Hospitalist Consultation ---
History of Present Illness Requesting Physician Dr. Clement Reason for Consult Diabetes mellitus History of Present Illness This patient was admitted to the urology service for stone removal. He did not take his morning diabetes medications in preparation for surgery. This evening he was noted to have a sugar of 280. History Problems: (1) DMII (diabetes mellitus, type 2) (2) Essential hypertension Home Meds Reported Medications Ibuprofen (IBUPROFEN) 600 Mg Tablet, 1 TAB PO Q6H PRN for PAIN, #20 TAB 03/28/18 Ibuprofen (MOTRIN IB) 200 Mg Tablet, 3 TAB PO Q6H PRN for PAIN 03/28/18 Oxybutynin Chloride (DITROPAN XL) 10 Mg Tab.er.24, 10 MG PO QDAY PRN for SPASMS, #10 TAB 03/28/18 Phenazopyridine Hcl (PHENAZOPYRIDINE HCL) 200 Mg Tablet, 200 MG PO TID PRN for MUSCLE SPASMS, #20 TAB 03/28/18 Docusate Sodium (COLACE) 100 Mg Capsule, 100 MG PO BID, #30 CAPSULE 03/28/18 Tamsulosin Hcl (FLOMAX) 0.4 Mg Cap.er.24h, MG PO QDAY, #10 CAP TAKE WITH FOOD 03/28/18 Hydrocodone Bit/Acetaminophen (NORCO 5-325 TABLET) 1 Each Tablet, 1-2 EACH PO Q6H PRN for PAIN, #30 TAB 03/28/18 Docusate Sodium (COLACE) 100 Mg Capsule, 100 MG PO QDAY, CAPSULE 03/24/18 Ibuprofen (IBUPROFEN) 200 Mg Tablet, 1 TAB PO Q6H PRN for PAIN, TAB 03/24/18 Tamsulosin Hcl (TAMSULOSIN HCL) 0.4 Mg Cap.er.24h, 0.4 MG PO QDAY, CAP 03/24/18 Oxybutynin Chloride (OXYBUTYNIN CHLORIDE ER) 10 Mg Tab.er.24, 10 MG PO QDAY, TAB.SR 03/24/18 Semaglutide (Ozempic) 1 Mg/0.75 Ml (2 Mg/1.5 Ml) Pen.injctr, 0.5 ML IM QWK 03/24/18 Phenazopyridine Hcl (PHENAZOPYRIDINE HCL) 200 Mg Tablet, 200 MG PO TID, TAB 03/24/18 Cholecalciferol (Vitamin D3) (VITAMIN D) 5,000 Unit Tablet, 5000 UNIT PO DAILY 03/07/18 Aspirin (ASPIR 81) 81 Mg Tablet.dr, 81 MG PO QDAY, TAB STOP TAKING ONE WEEK PRIOR TO STENT REMOVAL 03/07/18 Clonazepam (KLONOPIN) 1 Mg Tablet, 1 MG PO HS, #7 TAB 03/07/18 Montelukast Sodium (SINGULAIR) 10 Mg Tablet, 1 TAB PO HS, TAB 03/07/18 Lisinopril (LISINOPRIL) 40 Mg Tablet, 40 MG PO QDAY, TAB 03/07/18 Cetirizine Hcl (ZYRTEC) 10 Mg Tablet, 10 MG PO QDAY, TAB 03/07/18 [Trintellix] No Conflict Check, 10 MG PO DAILY 03/07/18 Ranitidine Hcl (ZANTAC) 150 Mg Tablet, 300 MG PO QPM, TAB 03/07/18 Ranitidine Hcl (ZANTAC) 150 Mg Tablet, 150 MG PO QAM, TAB 03/07/18 Fenofibrate Nanocrystallized (FENOFIBRATE) 48 Mg Tablet, 48 MG PO QDAY 03/07/18 Glyburide (GLYBURIDE) 5 Mg Tab, 10 MG PO BID, TAB 03/07/18 Metformin Hcl (METFORMIN HCL) 1,000 Mg Tablet, 1 TAB PO BIDBS, TAB 03/07/18 Discontinued Reported Medications Oxybutynin Chloride (OXYBUTYNIN CHLORIDE) 5 Mg Tablet, 5 MG PO QDAY, TAB 03/24/18 Allergies: Coded Allergies: Sulfa (Sulfonamide Antibiotics) (Verified Allergy, Unknown, 01/29/18) Patient History: Diabetes mellitus FATHER MOTHER BROTHER OR SISTER FH: HTN (hypertension) FATHER BROTHER OR SISTER FH: breast cancer MOTHER FH: depression MOTHER FH: heart disease FATHER FH: skin cancer FATHER High cholesterol BROTHER OR SISTER Stroke Hx Smoking: No Smoking Status: Never Smoker Exposure to Second Hand Smoke?: Yes (as a child ) Caffeine/Cups Per Day: NONE Hx Alcohol Use: Yes Hx Substance Use Disorder: No Social Drug Use: Never History of IV Drug Use: No Review of Systems All Systems Reviewed/Normal: Yes Exam Vital Signs Vital Signs Date Time Temp Pulse Resp B/P (MAP) Pulse Ox O2 Delivery O2 Flow Rate FiO2 03/28/18 17:29 91 Nasal Cannula 0.5 03/28/18 17:02 98.1 86 126/82 (97) 03/28/18 10:40 16 Neuro: No Gross deficits Cardiovascular: Regular Rate and Rhythm Respiratory: Clear to Auscultation GI: Abd Soft and Non-Tender Extremities: No Edema Medical Decision Making Data Points Result Diagram: 03/25/1893003/25/18930 Assessment and Plan Problems: (1) DMII (diabetes mellitus, type 2) Assessment & Plan: He is on chronic treatment with glyburide and metformin, which have been restarted. We also placed him on sliding scale level #2. Venous Thromboembolism Antithrombotics Is Pt On Any Antithrombotics?: No Exam Sepsis Risk: No Definite Risk JARRELL ROBERT DO Mar 28, 2018 18:20
--- NOTE | 2018-03-28 19:22 | NUR ---
Pt stated he felt funny "Heavy in my head, and sweaty." Requested checking blood sugar. No insulin given, will re check and dose at HS check Addendum: 03/28/18 at 1931 by DESIREE MCCONNELL RN Amended: Links added.
[2018-03-28] MEDS ORDERED: clonazePAM 1 MG TAB PO SCH (21:00)
[2018-03-28] MEDS ORDERED: FENOFIBRATE 48 MG TAB PO SCH (21:00)
[2018-03-28] MEDS ORDERED: ATORVASTATIN 40 MG TAB PO SCH (21:00)
[2018-03-28] MEDS: DOCUSATE SODIUM 100 MG CAP PO SCH (21:06)
[2018-03-29] MEDS: KETOROLAC 30 MG/ML VIAL IVP SCH ×2 (00:40→06:29)
[2018-03-29 03:40] VITALS: BP 111/70
--- NOTE | 2018-03-29 06:33 | NUR ---
pt requested extra blood sugar test this AM. Addendum: 03/29/18 at 0633 by DESIREE MCCONNELL RN Amended: Links added.
[2018-03-29 07:27] VITALS: BP 129/86
[2018-03-29] MEDS: metFORMIN HCL 500 MG TAB PO SCH (07:39)
[2018-03-29] MEDS: glyBURIDE 5 MG TAB PO SCH (07:39)
[2018-03-29] MEDS: INSULIN HUM LISPRO 100 UN/ML 3 ML VIAL SUBQ PRN (07:39)
[2018-03-29] MEDS: DOCUSATE SODIUM 100 MG CAP PO SCH (08:17)
[2018-03-29] MEDS ORDERED: RANITIDINE HCL 150 MG TAB PO SCH (09:00)
[2018-03-29] MEDS ORDERED: LISINOPRIL 20 MG TAB PO SCH (09:00)
[2018-03-29] MEDS ORDERED: TAMSULOSIN HCL 0.4 MG CAP PO SCH (09:00)
[2018-03-29] MEDS ORDERED: MONTELUKAST SODIUM 10 MG TAB PO SCH (09:00)
[2018-03-29] MEDS ORDERED: VORTIOXETINE HYDROBROMIDE 10 MG TAB PO SCH (09:00)
--- NOTE | 2018-03-29 10:10 | Hospitalist Progress Note ---
Subjective Progress Notes Subjective He has no complaints this morning. He had no acute events overnight. Patient Complains of: Cardiovascular: No: Chest Pain Respiratory: No: Shortness of Breath Physical Exam Vital Signs Date Time Temp Pulse Resp B/P (MAP) Pulse Ox O2 Delivery O2 Flow Rate FiO2 03/29/18 07:43 94 Room Air 03/29/18 07:27 98.2 79 18 129/86 (100) 03/28/18 18:36 0.5 Intake and Output 03/29/18 07:00 Intake Total 3050 ml Output Total 1715 ml Balance 1335 ml Intake Oral 1100 ml IV Total 1950 ml Output Urine Total 1715 ml # Voids 3 General Appearance: Alert, Awake, No Acute Distress, Afebrile Neuro: No Gross deficits Cardiovascular: Regular Rate and Rhythm Respiratory: No Respiratory Distress, Clear to Auscultation GI: Soft and Non-Tender Psych: Alert & Oriented X3, Appropriate Mood & Affect Result Diagram: 03/25/1893003/25/18930 Assessment and Plan Problems: (1) DMII (diabetes mellitus, type 2) Assessment & Plan: He is on chronic treatment with glyburide and metformin, which have been restarted. He was placed on sliding scale level #2 during admission. Blood glucose improved this morning. Exam Sepsis Risk: No Definite Risk DONI REVELES Mar 29, 2018 10:10
[2018-03-29 11:03] VITALS: BP 138/95
== END 2018-03-29 09:49 | disposition home or self-care (01) ==
LOC: OR 03:34 → MED 10:40
PROVIDERS: ADMIT Urology; ATTEND Urology
DX: N20.1 Calculus of ureter (principal); I10 Essential (primary) hypertension; E11.9 Type 2 diabetes mellitus without complications
CPT/HCPCS: 36415; 36416; 52325; 74018; 76000; 81001; 82948; 85025; 87088; 94640; C1758; C1769; C1894; C2617; G0378; J1100; J1815; J1885; J2001; J2250; J2405; J2704; J3010; J3490; Q9966; 82040; 82247; 82310; 82374; 82435; 82565; 82947; 84075; 84132; 84155; 84295; 84450; 84460; 84520; 96372; J0690

== ENCOUNTER → 2018-05-13 | Outpatient (CLI) | payer OTHER ==
[~2018-05-13] MED LIST changes: +HYDR-653 PO; +IBUP-1671 PO; +IBUP600T22 PO; +OXYB10TA21 PO
--- NOTE | 2018-05-13 09:40 | RADIOLOGY IMAGING REPORT ---
FACILITY: [facility] [place] PATIENT NAME: Albin Hutton : 1970 MR: [id number] V: [id number] EXAM DATE: [id number] ORDERING PHYSICIAN: KP DANG TECHNOLOGIST: [facility] Patient: Albin Hutton : 1970 Visit/Account:[id number] Date of Sevice: 05/13/2018 KIDNEYS COMPARISON: CT abdomen March 02, 2018. HISTORY: Right kidney stone, lithotripsy one month ago TECHNIQUE: Ultrasound of the kidneys and bladder was performed. Color Doppler images of the aorta a nd IVC were also obtained. FINDINGS: RIGHT KIDNEY: Normal size, 11.9 cm bipolar length. Normal echotexture. Normal variant cortical lo bulation. No hydronephrosis, calculus or perinephric fluid. No masses. LEFT KIDNEY: Normal size, 10.9 cm bipolar length. Normal echotexture. Normal variant cortical lob ulation including a normal variant dromedary hump. No hydronephrosis, calculus or perinephric fluid. No appreciable masses. BLADDER: Partially distended, estimated volume 89 mL with no measurable post port residual. Bilater al ureteral jets were seen. No visible wall thickening, mass, or calculus. ABDOMINAL AORTA AND IVC: Patent by Doppler ultrasound. Intrarenal resistive indices are within normal limits bilaterally, 0.66 on the right, 0.69 on the lef t. IMPRESSION: Unremarkable kidneys and bladder. No appreciable kidney or bladder stones and no hydronephrosis. Report Dictated By: Kristian Villalobos at 05/13/2018 9:32 AM Report E-Signed By: Kristian Villalobos at 05/13/2018 9:35 AM WSN:[id number]
== END ==
LOC: US 01:56
PROVIDERS: ATTEND Nurse Practitioner Family
DX: N20.0 Calculus of kidney (principal)
CPT/HCPCS: 76705